=== PATIENT | female | born 2000 | race Caucasian/White ===

== ENCOUNTER 2022-08-07 17:10 | Emergency (ER) | payer BC ==
[~2022-08-07] VITALS: Ht 154.9 cm; Wt 64.4 kg
[2022-08-07 17:10] VITALS: BP_SYST 119
--- NOTE | 2022-08-07 17:15 | NUR ---
PT TO BED 2. BOTH SIDE RAILS UP. VSS. NAD NOTED. AWAITING MD ASSESS.
--- NOTE | 2022-08-07 17:40 | NUR ---
MD RIVERS AT BEDSIDE FOR MSE.
[2022-08-07] MEDS ORDERED: ACET-2634 PO (18:06)
[2022-08-07 18:25] VITALS: BP_SYST 116
--- NOTE | 2022-08-07 18:25 | NUR ---
Patient given written and verbal discharge instructions and verbalizes understanding. ER MD discussed with patient the results and treatment provided. Patient in stable condition. ID arm band removed. IV catheter removed intact and dressing applied, no active bleeding. Rx of TYLENOL given. Patient educated on pain management and to follow up with PMD. Pain Scale 1/10. Opportunity for questions provided and answered. Medication side effect fact sheet provided.
== END 2022-08-07 18:25 | disposition home or self-care (01) ==
LOC: SED 17:10
DX: S61.214A Laceration without foreign body of right ring finger without damage to nail, initial encounter (principal); S60.041A Contusion of right ring finger without damage to nail, initial encounter; F12.90 Cannabis use, unspecified, uncomplicated; Z79.899 Other long term (current) drug therapy; W21.89XA Striking against or struck by other sports equipment, initial encounter; Y93.89 Activity, other specified; Y92.89 Other specified places as the place of occurrence of the external cause; Y99.8 Other external cause status
CPT/HCPCS: 73140-TC; 99283

== ENCOUNTER 2023-01-12 09:39 | Emergency (ER) | payer BC ==
[~2023-01-12] VITALS: Ht 154.9 cm; Wt 63.5 kg
[~2023-01-12 09:39] MED LIST: ACET-2634 PO
[2023-01-12 09:58] VITALS: BP_SYST 126; PULSE 71; RESP 16; TEMP 97.4; O2SAT 100
[2023-01-12 10:52] LABS: BILIRUBIN,URINE NEGATIVE (NEGATIVE); BLOOD, URINE 3+ (NEGATIVE); COLOR,URINE YELLOW (YELLOW); GLUCOSE,URINE NEGATIVE (NEGATIVE); KETONES,URINE NEGATIVE (NEGATIVE); LEUKOCYTE ESTERASE ,URINE NEGATIVE (NEGATIVE); NITRITE, URINE NEGATIVE (NEGATIVE); PH,URINE 7.5 (5.0-8.0); PROTEIN URINE NEGATIVE (NEGATIVE)
[2023-01-12 11:09] LABS: CLARITY/URINE HAZY (CLEAR)
[2023-01-12 11:11] LABS: BASOPHILS # (AUTO) 0.1 K/uL (0.0-0.2); EOSINOPHILS # (AUTO) 0.2 K/uL (0.0-0.4); EOSINOPHILS % (AUTO) 2.9 % (0.0-4.0); HEMATOCRIT 39.6 % (36-48); HEMOGLOBIN 12.9 g/dL (12.0-16.0); LYMPHOCYTES # (AUTO) 2.6 K/uL (1.0-5.5); MEAN CORPUSCULAR HEMOGLOBIN 29 pg (27-31); MEAN CORPUSCULAR HGB CONC 33 % (32-36); MEAN CORPUSCULAR VOLUME 88 fL (79.0-98.0); MONOCYTES # (AUTO) 0.6 K/uL (0.0-1.0); MONOCYTES % (AUTO) 8.1 % (1.7-9.3); NEUTROPHILS # (AUTO) 4.4 K/uL (1.8-7.7); PLATELET COUNT (AUTO) 302 K/uL (130-430); WHITE BLOOD COUNT (AUTO) 7.9 K/uL (4.8-10.8)
[2023-01-12 11:15] LABS: BACTERIA,URINE None Seen /HPF (None Seen); RBC,URINE 50-80 /HPF (0-3); WBC,URINE 0-3 /HPF (0-3)
[2023-01-12 11:26] LABS: CALCIUM 9.5 mg/dL (8.4-11.0); CREATININE 0.74 mg/dL (0.55-1.30); POTASSIUM 3.8 mmol/L (3.5-5.1)
[2023-01-12 11:31] LABS: INR 1.1 (0.8-1.2)
[2023-01-12 11:37] LABS: ALBUMIN 3.7 g/dL (3.4-4.8); TOTAL BILIRUBIN 0.4 mg/dL (0.0-1.0); TOTAL PROTEIN, SERUM 7.5 g/dL (6.4-8.3)
[2023-01-12] MEDS ORDERED: IBUP-1971 PO (12:39)
[2023-01-12] MEDS ORDERED: PHEN-890 PO (12:39)
[2023-01-12] MEDS ORDERED: ONDA-8 TL (12:39)
[2023-01-12] MEDS ORDERED: NITR-85 PO (12:39)
[2023-01-12 13:19] VITALS: BP_SYST 122; PULSE 73; RESP 18; TEMP 98; O2SAT 100
== END 2023-01-12 13:18 | disposition home or self-care (01) ==
LOC: SED 09:39
DX: N92.0 Excessive and frequent menstruation with regular cycle (principal); R55 Syncope and collapse; R30.0 Dysuria; R11.0 Nausea; Z79.899 Other long term (current) drug therapy
CPT/HCPCS: 36415; 80053; 81000; 81001; 81015; 81025; 84702; 85025; 85610-TC; 85730-TC; 86901; 93005; 99284